=== PATIENT | male | born 1995 | race Caucasian/White ===

== ENCOUNTER 2017-02-18 02:33 | Emergency (ER) | payer OTHER, BC ==
[2017-02-18 02:48] VITALS: BP 142/77
--- NOTE | 2017-02-18 03:11 | EDM.PDOC ---
ED HPI GENERAL MEDICAL PROBLEM - General Chief Complaint: General Stated Complaint: pulling/lifting mainframe and felt something "pop" Time Seen by Provider: 02/18/17 03:06 Source of Information: Reports: Patient History Limitations: Reports: No Limitations - History of Present Illness INITIAL COMMENTS - FREE TEXT/NARRATIVE: Patient states that he was mildly the mainframe on a hoist when he felt something pop and developed 6 year abdominal pain came in for evaluation and once in the ER his symptoms were relieved Onset: Sudden Duration: Minutes: Location: Reports: Abdomen, Other (Lower abdominal pain and perianal) Quality: Reports: Throbbing Severity: Moderate Improves with: Reports: Other (Pain improved by itself) Worsens with: Reports: Other (Sitting) Context: Reports: Trauma Associated Symptoms: Reports: No Other Symptoms - Related Data Allergies Allergy/AdvReac Type Severity Reaction Status Date / Time No Known Allergies Allergy Verified 02/18/17 02:52 Past Medical History HEENT History: Reports: Impaired Vision Gastrointestinal History: Reports: Other (See Below) Other Gastrointestinal History: constipation at times - Past Surgical History HEENT Surgical History: Reports: Tonsillectomy GI Surgical History: Reports: Appendectomy Social & Family History - Tobacco Use Smoking Status *Q: Never Smoker Second Hand Smoke Exposure: No - Caffeine Use Caffeine Use: Reports: Coffee, Energy Drinks, Soda - Recreational Drug Use Recreational Drug Use: No ED ROS GENERAL - Review of Systems Review Of Systems: See Below Constitutional: Reports: No Symptoms HEENT: Reports: No Symptoms Respiratory: Reports: No Symptoms Cardiovascular: Reports: No Symptoms Endocrine: Reports: No Symptoms GI/Abdominal: Reports: No Symptoms Musculoskeletal: Reports: Back Pain Skin: Reports: No Symptoms Neurological: Reports: No Symptoms ED EXAM, GENERAL - Physical Exam Exam: See Below Exam Limited By: No Limitations General Appearance: Alert, WD/WN, No Apparent Distress Ears: Normal External Exam, Normal Canal, Hearing Grossly Normal, Normal TMs Ear Exam: Bilateral Ear: Auricle Normal, Canal Normal, TM normal Nose: Normal Inspection, Normal Mucosa, No Blood Throat/Mouth: Normal Inspection, Normal Lips, Normal Teeth, Normal Gums, Normal Oropharynx, Normal Voice, No Airway Compromise Head: Atraumatic, Normocephalic Neck: Normal Inspection, Supple, Non-Tender, Full Range of Motion Respiratory/Chest: No Respiratory Distress, Lungs Clear, Normal Breath Sounds, No Accessory Muscle Use, Chest Non-Tender Cardiovascular: Normal Peripheral Pulses, Regular Rate, Rhythm, No Edema, No Gallop, No JVD, No Murmur, No Rub GI/Abdominal: Normal Bowel Sounds, Soft, Non-Tender, No Organomegaly, No Distention, No Abnormal Bruit, No Mass Rectal (Males) Exam: Normal Exam, Normal Rectal Tone, Prostate Normal, Other ( Rectal exam done revealed good sphincter tone coccyx was palpated with no pain) Back Exam: Normal Inspection, Full Range of Motion, NT Extremities: Normal Inspection, Normal Range of Motion, Non-Tender, Normal Capillary Refill, No Pedal Edema Neurological: Alert, Oriented, CN II-XII Intact, Normal Cognition, Normal Gait, Normal Reflexes, No Motor/Sensory Deficits Psychiatric: Normal Affect, Normal Mood Course - Vital Signs Last Recorded V/S: Last Vital Signs Temp 98.5 F 02/18/17 02:43 Pulse 105 H 02/18/17 02:43 Resp 16 02/18/17 02:43 BP 142/77 H 02/18/17 02:43 Pulse Ox 100 02/18/17 02:43 - Orders/Labs/Meds Orders: Active Orders 24 hr Category Date Time Status Sacrum Coccyx Min 2V [CR] Stat Exams 02/18/17 02:41 Ordered Departure - Departure Time of Disposition: 03:20 Disposition: Home, Self-Care 01 Condition: Good Clinical Impression: Abdominal pain decreased with position change - Discharge Information Care Plan Goals: Patient symptoms resolved by itself at this time I will see him in the clinic as follow-up if pain returns I'll send him home now from work for him to rest may return to work tomorrow with no limitations - My Orders Last 24 Hours: My Active Orders 02/18/17 02:41 Sacrum Coccyx Min 2V [CR] Stat - Assessment/Plan Last 24 Hours: My Active Orders 02/18/17 02:41 Sacrum Coccyx Min 2V [CR] Stat
== END 2017-02-18 03:43 | disposition home or self-care (01) ==
LOC: LL.ED 02:33
DX: R10.30 Lower abdominal pain, unspecified (principal); Z90.49 Acquired absence of other specified parts of digestive tract; Z98.890 Other specified postprocedural states; X50.9XXA Other and unspecified overexertion or strenuous movements or postures, initial encounter
CPT/HCPCS: 36000; 72220; 99283

== ENCOUNTER 2018-06-05 06:18 | Emergency (ER) | payer BC, OTHER ==
[2018-06-05] MEDS ORDERED: Sodium Chloride 0.9% 10 ML Syringe FLUSH PRN (06:36)
--- NOTE | 2018-06-05 06:36 | EDM.PDOC ---
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 Assessment:: As above Plan: As above. Extensive precautions were given to the patient, who is in agreement with the treatment plan. See Patient Instructions for further treatment and plan.
[2018-06-05] MEDS ORDERED: Lactated Ringers 1,000 ML IV ONE (06:41)
[2018-06-05] MEDS ORDERED: Bacitracin/Neomycin/Polymyxin B Oint 0.9 GM U/D Packet TOP ONE (06:41)
[2018-06-05 07:27] LABS: CHLORIDE,CL 105 mmol/L (98-107); SODIUM,NA 145 mmol/L (136-145)
[2018-06-05] MEDS ORDERED: Lidocaine 0.5% 50 ML SDV ONE (07:52)
[2018-06-05] MEDS ORDERED: Potassium Chloride 20 MEQ Tab.ER PO ONE (08:52)
[2018-06-05] MEDS ORDERED: Diphtheria,Pertussis(Acell),Tetanus Vaccine 0.5 ML SDV IM ONE (08:53)
[2018-06-05] MEDS ORDERED: Lidocaine 0.5% 50 ML SDV INFILT ONE (10:50)
== END 2018-06-05 10:45 | disposition home or self-care (01) ==
LOC: LL.ED 06:18
DX: S41.112A Laceration without foreign body of left upper arm, initial encounter (principal); M79.5 Residual foreign body in soft tissue; E87.6 Hypokalemia; F10.120 Alcohol abuse with intoxication, uncomplicated; Z23 Encounter for immunization; Y90.0 Blood alcohol level of less than 20 mg/100 ml; V89.2XXA Person injured in unspecified motor-vehicle accident, traffic, initial encounter
CPT/HCPCS: 12007; 36415; 71046; 72040; 72170; 73060-LT; 80053; 80305-QW; 81001; 82150; 82550; 82553; 83605; 83690; 83735; 84484; 84550; 85025; 85610; 85730; 87086; 90471; 90715; 93005; 96360; 99291; A9270-GY; G0480; J7120

== ENCOUNTER 2019-03-11 09:04 | Emergency (ER) | payer BC, OTHER ==
[2019-03-11 09:10] VITALS: BP 132/72; PULSE 83
--- NOTE | 2019-03-11 10:25 | EDM.PDOC ---
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 well when he was pulling out he pulled his right groin area at this time he has a palpable mass within the inguinal canal was checked he has a hernia which is probably a direct hernia Onset: Today Duration: Hour(s):, Constant Location: Reports: Lower Extremity, Right Quality: Reports: Ache Severity: Moderate Improves with: Reports: Rest Worsens with: Reports: Other (Lifting) Context: Reports: Lifting Associated Symptoms: Reports: No Other Symptoms Treatments IN HOME CAREGIVER: Reports: Acetaminophen, Other (see below) Other Treatments IN HOME CAREGIVER: none Right Groin Pain Score (Numeric/FACES): 2 - Related Data Allergies Allergy/AdvReac Type Severity Reaction Status Date / Time No Known Allergies Allergy Verified 06/05/18 06:36 Home Meds: Home Meds Sodium Chloride 0.9% [Saline Flush] 10 ml FLUSH ASDIRECTED PRN syringe [Rx] Past Medical History HEENT History: Reports: Impaired Vision, Other (See Below) Other HEENT History: The patient does wear glasses. Cardiovascular History: Reports: None Gastrointestinal History: Reports: None, Chronic Constipation Other Gastrointestinal History: constipation at times Genitourinary History: Reports: None Musculoskeletal History: Reports: None Neurological History: Reports: None Psychiatric History: Reports: None Endocrine/Metabolic History: Reports: None - Infectious Disease History Infectious Disease History: Reports: Chicken Pox - Past Surgical History Head Surgeries/Procedures: Reports: None HEENT Surgical History: Reports: Adenoidectomy, Oral Surgery, Tonsillectomy, Other (See Below) Other HEENT Surgeries/Procedures: Tonsillectomy and adenoidectomy at age 5, wisdom teeth have been extracted Cardiovascular Surgical History: Reports: None Respiratory Surgical History: Reports: None GI Surgical History: Reports: Appendectomy, Other (See Below) Other GI Surgeries/Procedures: Appendectomy at age 4 Male Surgical History: Reports: Circumcision, Other (See Below) Other Male Surgeries/Procedures: Circumcision as an Endocrine Surgical History: Reports: None Neurological Surgical History: Reports: None Musculoskeletal Surgical History: Reports: None Oncologic Surgical History: Reports: None Dermatological Surgical History: Reports: None Social & Family History - Family History Family Medical History: Noncontributory - Tobacco Use Smoking Status *Q: Former Smoker Years of Tobacco use: 2 Used Tobacco, but Quit: Yes Month/Year Tobacco Last Used: Second Hand Smoke Exposure: No - Caffeine Use Caffeine Use: Reports: Coffee, Energy Drinks Caffeine Use Comment: average 3 per week - Recreational Drug Use Recreational Drug Use: No - Living Situation & Occupation Living situation: Reports: Single (No children), Alone Occupation: Employed ([employer] GENERAL - Review of Systems Review Of Systems: See Below Constitutional: Reports: No Symptoms HEENT: Reports: No Symptoms Respiratory: Reports: No Symptoms Cardiovascular: Reports: No Symptoms Endocrine: Reports: No Symptoms GI/Abdominal: Reports: No Symptoms : Reports: No Symptoms Musculoskeletal: Reports: Other (Right groin pain) Skin: Reports: No Symptoms Neurological: Reports: No Symptoms Psychiatric: Reports: No Symptoms Hematologic/Lymphatic: Reports: No Symptoms Immunologic: Reports: No Symptoms ED EXAM, GENERAL - Physical Exam Exam: See Below Exam Limited By: No Limitations General Appearance: Alert, WD/WN, No Apparent Distress Ears: Normal External Exam, Normal Canal, Hearing Grossly Normal, Normal TMs Ear Exam: Bilateral Ear: Auricle Normal, Canal Normal, TM normal Nose: Normal Inspection Throat/Mouth: Normal Inspection, Normal Lips, Normal Teeth, Normal Gums, Normal Oropharynx, Normal Voice, No Airway Compromise Head: Atraumatic, Normocephalic Neck: Normal Inspection, Supple, Non-Tender, Full Range of Motion Respiratory/Chest: No Respiratory Distress, Lungs Clear, Normal Breath Sounds, No Accessory Muscle Use, Chest Non-Tender Cardiovascular: Normal Peripheral Pulses, Regular Rate, Rhythm, No Edema, No Gallop, No JVD, No Murmur, No Rub GI/Abdominal: Normal Bowel Sounds, Soft, Non-Tender, No Organomegaly, No Distention, No Abnormal Bruit, No Mass (Male) Exam: Hernia (Right inguinal), Inguinal Lymphadenopathy (Right inguinal adenopathy) Rectal (Males) Exam: Normal Exam, Normal Rectal Tone, Prostate Normal Back Exam: Normal Inspection, Full Range of Motion, NT Extremities: Normal Inspection, Normal Range of Motion, Non-Tender, Normal Capillary Refill, No Pedal Edema Neurological: Alert, Oriented, CN II-XII Intact, Normal Cognition, Normal Gait, Normal Reflexes, No Motor/Sensory Deficits Psychiatric: Normal Affect, Normal Mood Skin Exam: Warm, Dry, Intact, Normal Color, No Rash Lymphatic: No Adenopathy Course - Vital Signs Last Recorded V/S: Last Vital Signs Temp 97.7 F 03/11/19 09:06 Pulse 83 03/11/19 09:06 Resp 20 03/11/19 09:06 BP 132/72 03/11/19 09:06 Pulse Ox 100 03/11/19 09:06 Departure - Departure Time of Disposition: 10:24 Disposition: Home, Self-Care 01 Clinical Impression: Right inguinal hernia - Discharge Information *PRESCRIPTION DRUG MONITORING PROGRAM REVIEWED*: No *COPY OF PRESCRIPTION DRUG MONITORING REPORT IN PATIENT YOUNG: No Referrals: Johanna Vences, AIR ANALYSIS ENGINEERING TECHNICIAN [Primary Care Provider] - Care Plan Goals: I will refer him to Dr. Dobbs for evaluation and right inguinal herniorrhaphy at the [facility]
== END 2019-03-11 10:38 | disposition home or self-care (01) ==
LOC: LL.ED 09:04
DX: K40.90 Unilateral inguinal hernia, without obstruction or gangrene, not specified as recurrent (principal); Z87.891 Personal history of nicotine dependence
CPT/HCPCS: 99283